=== PATIENT | female | born 1945 | race Caucasian/White ===

== ENCOUNTER 2017-05-20 22:55 | Emergency (ER) | payer MEDICARE, OTHER ==
[2017-05-20] MEDS ORDERED: Aluminum Hydroxide/Magnesium Hydroxide Susp 30 ML Cup PO ONE (23:25)
--- NOTE | 2017-05-20 23:52 | EDM.PDOC ---
ED HPI GENERAL MEDICAL PROBLEM - General Chief Complaint: Chest Pain Stated Complaint: CHEST PRESSURE Time Seen by Provider: 05/20/17 22:58 Source of Information: Reports: Patient History Limitations: Reports: No Limitations - History of Present Illness INITIAL COMMENTS - FREE TEXT/NARRATIVE: 71 y.o.w.f came to the ed due to left sided ant chest pain which improved after she passed some gas. No N/V/D, diaphoresis or dizziness or any other acute medical issue. Onset: Gradual Onset Date: 05/20/17 Onset Time: 13:00 Duration: Hour(s): Location: Reports: Chest Quality: Reports: Dull Severity: Mild Improves with: Reports: Other (taking maalox) Worsens with: Reports: None Associated Symptoms: Reports: No Other Symptoms Midsternal chest Pain Score (Numeric/FACES): 3 - Related Data Allergies Allergy/AdvReac Type Severity Reaction Status Date / Time amoxicillin Allergy Rash Verified 05/20/17 23:22 clindamycin Allergy Hives Verified 05/20/17 23:22 Penicillins Allergy Rash Verified 05/20/17 23:22 Sulfa (Sulfonamide Allergy Rash Verified 05/20/17 23:22 Antibiotics) Home Meds: Home Meds Allopurinol [Zyloprim] 300 mg DAILY 05/20/17 [History] Amitriptyline [Elavil] 20 mg PO BEDTIME 05/20/17 [History] Aspirin [Ecotrin] 325 mg PO DAILY 05/20/17 [History] Atenolol [Tenormin] 100 mg DAILY 05/20/17 [History] Calcium Carb&Cit/D3/Phytostrol [Citracal D + Heart Health] 1 tab BID 05/20/17 [ History] Calcium Polycarbophil [Fibercon] 2 tab PO BEDTIME 05/20/17 [History] Carboxymethylcellulose Sodium [Refresh Tears] 1 drop EYEBOTH DAILY 05/20/17 [ History] Cholecalciferol (Vitamin D3) [Vitamin D3] 2,000 unit PO DAILY 05/20/17 [History] Esomeprazole Magnesium [Nexium] 40 mg PO DAILY 05/20/17 [History] Furosemide [Furosemide] 20 mg DAILY 05/20/17 [History] Letrozole [Femara] 2.5 mg PO DAILY 05/20/17 [History] Losartan [Cozaar] 100 mg DAILY 05/20/17 [History] Multivitamin [Multivitamins] 1 each PO DAILY 05/20/17 [History] Simvastatin [Simvastatin] 20 mg BEDTIME 05/20/17 [History] sitaGLIPtin Phos/Metformin HCl [Janumet 50-1,000 MG] 1 tab BID 05/20/17 [History ] Acetaminophen [Tylenol Arthritis] 650 mg PO BID PRN 05/21/17 [History] Past Medical History Cardiovascular History: Reports: High Cholesterol, Hypertension Gastrointestinal History: Reports: GERD Endocrine/Metabolic History: Reports: Diabetes, Type II Oncologic (Cancer) History: Reports: Breast - Past Surgical History Female Surgical History: Reports: Mastectomy Oncologic Surgical History: Reports: Mastectomy Social & Family History - Tobacco Use Smoking Status *Q: Never Smoker - Recreational Drug Use Recreational Drug Use: No ED ROS GENERAL - Review of Systems Review Of Systems: See Below Constitutional: Reports: No Symptoms HEENT: Reports: No Symptoms Respiratory: Reports: No Symptoms Cardiovascular: Reports: Chest Pain Endocrine: Reports: No Symptoms GI/Abdominal: Reports: No Symptoms : Reports: No Symptoms Musculoskeletal: Reports: No Symptoms Skin: Reports: No Symptoms Neurological: Reports: No Symptoms Psychiatric: Reports: No Symptoms Hematologic/Lymphatic: Reports: No Symptoms Immunologic: Reports: No Symptoms ED EXAM, GENERAL - Physical Exam Exam: See Below Exam Limited By: No Limitations General Appearance: Alert, WD/WN, No Apparent Distress, Obese Eye Exam: Bilateral Eye: Normal Inspection Ears: Normal External Exam Ear Exam: Bilateral Ear: Auricle Normal Nose: Normal Inspection Throat/Mouth: Normal Inspection Head: Atraumatic Neck: Normal Inspection Respiratory/Chest: No Respiratory Distress Cardiovascular: Normal Peripheral Pulses, Regular Rate, Rhythm, No Edema Peripheral Pulses: 2+: Femoral (L), Femoral (R) GI/Abdominal: Normal Bowel Sounds, Soft, Non-Tender (Female) Exam: Deferred Rectal (Female) Exam: Deferred Back Exam: Normal Inspection, Full Range of Motion Extremities: Normal Inspection, Normal Range of Motion Neurological: Alert, Oriented, CN II-XII Intact, Normal Cognition Psychiatric: Normal Affect, Normal Mood Skin Exam: Warm, Dry, Intact, Normal Color Lymphatic: No Adenopathy EKG INTERPRETATION EKG Date: 05/20/17 Time: 23:05 Rhythm: NSR Rate (Beats/Min): 73 [place]: Normal P-Wave: Present QRS: Normal ST-T: Normal QT: Normal Comparison: NA - No Prior EKG Course - Vital Signs Text/Narrative:: 71 y.o.w.f came to the ed due to left sided ant chest pain which improved after she passed some gas. No N/V/D, diaphoresis or dizziness or any other acute medical issue. PE: WNWD w f NAD Labs: Impression: A typical chest pain Tx: Maalox Reexam: Pain subsided BP was 145/67 on D/C Plan: D/C with instructions Last Recorded V/S: Last Vital Signs Temp 36.6 C 05/20/17 22:58 Pulse 78 05/20/17 22:58 Resp 20 05/21/17 00:40 BP 149/63 H 05/21/17 00:40 Pulse Ox 97 05/21/17 00:40 - Orders/Labs/Meds Orders: Active Orders 24 hr Category Date Time Status EKG Documentation Completion [RC] ASDIRECTED Care 05/21/17 01:41 Active EKG 12 Lead [EK] Routine Ther 05/20/17 23:00 Ordered Labs: Laboratory Tests 05/20/17 05/20/17 05/20/17 Range/Units 23:10 23:10 23:10 WBC 8.1 (4.5-12.0) X10-3/uL RBC 4.25 (3.23-5.20) x10(6)uL Hgb 12.4 (11.5-15.5) g/dL Hct 37.2 (30.0-51.3) % MCV 87.5 (80-96) fL MCH 29.3 (27.7-33.6) pg MCHC 33.5 (32.2-35.4) g/dL RDW 14.8 (11.5-15.5) % Plt Count 195 (125-369) X10(3)uL MPV 10.4 (7.4-10.4) fL Neut % (Auto) 54.0 (46-82) % Lymph % (Auto) 33.8 (13-37) % Ponce % (Auto) 7.7 (4-12) % Eos % (Auto) 4 (1.0-5.0) % Baso % (Auto) 1 (0-2) % Neut # (Auto) 4.3 (1.6-8.3) # Lymph # (Auto) 2.8 (0.6-5.0) # Ponce # (Auto) 0.6 (0.0-1.3) # Eos # (Auto) 0.3 (0.0-0.8) # Baso # (Auto) 0.1 (0.0-0.2) # Sodium 138 (135-145) mmol/L Potassium 4.5 (3.5-5.3) mmol/L Chloride 104 D (100-110) mmol/L Carbon Dioxide 23 (23-29) mmol/L BUN 32 H (8-23) mg/dL Creatinine 1.4 H (0.6-1.3) mg/dL Est Cr Clr Drug Dosing 31.37 mL/min Estimated GFR (MDRD) 37 L (>60) BUN/Creatinine Ratio 22.9 H (9-20) Glucose 148 H (80-116) mg/dL Calcium 10.1 (8.6-10.2) mg/dL Troponin I 0.01 L (0.02-0.06) NG/ML Meds: Medications Discontinued Medications Generic Name Dose Route Start Last Admin Trade Name Freq PRN Reason Stop Dose Admin Al Hydroxide/Mg Hydroxide 30 ml 05/20/17 23:25 05/20/17 23:29 Mag-Al Susp PO 05/20/17 23:26 30 ml ONETIME ONE Administration Departure - Departure Time of Disposition: 00:43 Disposition: Home, Self-Care 01 Condition: Good Clinical Impression: GERD (gastroesophageal reflux disease) Qualifiers: Esophagitis presence: without esophagitis Qualified Code(s): K21.9 - Gastro- esophageal reflux disease without esophagitis Instructions: Gastroesophageal Reflux Disease, Adult Referrals: Omi Orta MD [Primary Care Provider] - Forms: ED Department Discharge Additional Instructions: Please take Maalox 3 hours after your last meal of the day, please follow up with your regular MD, come back if your symptoms get worse acutely. - My Orders Last 24 Hours: My Active Orders 05/20/17 23:00 EKG 12 Lead [EK] Routine 05/21/17 01:41 EKG Documentation Completion [RC] ASDIRECTED - Assessment/Plan Last 24 Hours: My Active Orders 05/20/17 23:00 EKG 12 Lead [EK] Routine 05/21/17 01:41 EKG Documentation Completion [RC] ASDIRECTED
[2017-05-21 01:38] VITALS: BP 149/63
== END 2017-05-21 00:53 | disposition home or self-care (01) ==
LOC: FB.ED 22:55
DX: K21.9 Gastro-esophageal reflux disease without esophagitis (principal); E78.00 Pure hypercholesterolemia, unspecified; I10 Essential (primary) hypertension; E11.9 Type 2 diabetes mellitus without complications; Z90.89 Acquired absence of other organs; Z79.82 Long term (current) use of aspirin; Z79.899 Other long term (current) drug therapy; Z88.0 Allergy status to penicillin; Z88.2 Allergy status to sulfonamides; Z88.1 Allergy status to other antibiotic agents; Z79.84 Long term (current) use of oral hypoglycemic drugs
CPT/HCPCS: 36415; 80048; 84484; 85025; 93005; 96372; 99285; A9270; 99283

== ENCOUNTER 2020-04-30 07:11 | Day surgery (SDC) | payer MEDICARE ==
[2020-04-30] MEDS ORDERED: Lidocaine 1% PF 2 ML SDV INJECT ONE (07:12)
[2020-04-30] MEDS ORDERED: Propofol 200 MG/20 ML SDV IV ONE (07:12)
[2020-04-30] MEDS ORDERED: Sodium Chloride 0.9% 10 ML Syringe FLUSH PRN (08:45)
[2020-04-30] MEDS ORDERED: Lactated Ringers 1,000 ML IV SCH (08:45)
--- NOTE | 2020-04-30 08:53 | PCM.OPNOTE ---
- General Post-Op/Procedure Note Date of Surgery/Procedure: 04/30/20 Operative Procedure(s): c scope with biopsy Findings: descending colon polyp x6 Pre Op Diagnosis: screening for colon cancer Post-Op Diagnosis: descending colon polyp x6 Anesthesia Technique: ANTONIA Primary Surgeon: Seun Romero Anesthesia Provider: Aristeo Saravia Pathology: descending colon polyp x6 Complications: None Condition: Good Free Text/Narrative:: see dictation
[2020-04-30 09:48] VITALS: BP 151/75; PULSE 60
--- NOTE | 2020-04-30 20:22 | OR ---
DATE OF OPERATION: 04/30/2020 SURGEON: Seun Romero MD PREOPERATIVE DIAGNOSIS: Need for colon cancer screening. POSTOPERATIVE DIAGNOSIS: Descending colon polyps x6. INDICATIONS FOR PROCEDURE: This is a 74-year-old white female who is referred for routine colon cancer screening. She was offered and accepted same. DESCRIPTION OF OPERATION: After an excellent IV sedation was administered, digital rectal exam was performed. No marked abnormality was noted. Flexible colonoscope was inserted and advanced to the cecum. The prep was excellent. Following findings were noted: Ascending colon, unremarkable. Transverse colon, unremarkable. Descending colon in the area from the splenic flexure down a total of 6 polypoid lesions were removed varying in size between 2 to approximately 4 mm. These were all submitted in 1 container. Sigmoid was unremarkable. Rectum and anus were unremarkable. Results will be sent to the patient via letter. /[id number] [address]ILLA
== END 2020-04-30 10:13 | disposition home or self-care (01) ==
LOC: FB.SDS 07:11
PROVIDERS: ATTEND Surgery
DX: Z12.11 Encounter for screening for malignant neoplasm of colon (principal); D12.4 Benign neoplasm of descending colon; E11.9 Type 2 diabetes mellitus without complications; E66.01 Morbid (severe) obesity due to excess calories; G47.33 Obstructive sleep apnea (adult) (pediatric); I10 Essential (primary) hypertension; E78.5 Hyperlipidemia, unspecified; Z68.39 Body mass index [BMI] 39.0-39.9, adult; Z79.899 Other long term (current) drug therapy; Z88.0 Allergy status to penicillin; Z88.1 Allergy status to other antibiotic agents; Z88.2 Allergy status to sulfonamides
CPT/HCPCS: 00812-QZ; 82962; 88305; J2001; J2704; J7120

== ENCOUNTER 2024-09-04 00:11 | Emergency (ER) | payer MEDICARE ==
[2024-09-04] MEDS ORDERED: traMADol 50 MG Tab PO ONE (00:12)
[2024-09-04] MEDS: Morphine 4 MG/ML VIAL IM ONE (00:32)
[2024-09-04 00:34] LABS: BASOPHILS ABSOLUTE AUTO 0.1 x10-3/uL (0.0-0.1); BASOPHILS PERCENT AUTO 1.1 % (0.2-1.5); EOSINOPHILS ABSOLUTE AUTO 0.3 x10-3/uL (0.0-0.8); EOSINOPHILS PERCENT AUTO 3.4 % (0.6-8.1); HEMATOCRIT 36.6 % (34.2-48.2); HEMOGLOBIN 12.1 g/dL (11.4-15.5); LYMPHOCYTES ABSOLUTE AUTO 4.2 x10-3/uL (1.0-4.4); LYMPHOCYTES PERCENT AUTO 44.6 % (18.4-52.1); MEAN CORPUSCULAR HEMOGLOBIN 30.3 pg (23.9-33.9); MEAN CORPUSCULAR HGB CONC 33.1 g/dL (31.9-34.8); MEAN CORPUSCULAR VOLUME 91.7 fL (76.7-100.5); MEAN PLATELET VOLUME 9.8 fL (7.1-12.4); MONOCYTES ABSOLUTE AUTO 0.6 x10-3/uL (0.3-1.0); MONOCYTES PERCENT AUTO 6.6 % (4.4-15.7); NEUTROPHILS ABSOLUTE AUTO 4.2 x10-3/uL (1.5-6.3); NEUTROPHILS PERCENT AUTO 44.3 % (30.8-76.2); PLATELET COUNT,PLT 253 x10(3)uL (151-488); RED BLOOD CELL COUNT 3.99 x10(6)uL (3.60-5.20); RED CELL DISTRIBUTION WIDTH 15.3 % (12.3-16.5); WHITE BLOOD CELL COUNT,WBC 9.5 x10-3/uL (3.0-10.3)
[2024-09-04] MEDS: hydrOXYzine HCl 50 MG/ML SDV IM ONE (00:34)
[2024-09-04 00:36] LABS: BLOOD UREA NITROGEN,BUN 33 mg/dL (7-18); BUN/CREATININE RATIO 19.4 (9-20); CALCIUM 9.2 mg/dL (8.6-10.2); CARBON DIOXIDE,CO2 25 mmol/L (21-32); CHLORIDE,CL 107 mmol/L (100-110); CREATININE 1.7 mg/dL (0.55-1.02); EST CRCL DRUG DOSING (CG) 23.93 mL/min; ESTIMATED GFR 31 mL/min (>60); GLUCOSE RANDOM 127 mg/dL (80-116); SODIUM,NA 143 mmol/L (135-145)
[2024-09-04 02:39] VITALS: BP 153/68; PULSE 65
[2024-09-04] MEDS: cloNIDine 0.1 MG Tab PO ONE (02:45)
== END 2024-09-04 02:20 | disposition home or self-care (01) ==
LOC: FB.ED 00:11
DX: M54.2 Cervicalgia (principal); E78.00 Pure hypercholesterolemia, unspecified; E11.22 Type 2 diabetes mellitus with diabetic chronic kidney disease; I12.9 Hypertensive chronic kidney disease with stage 1 through stage 4 chronic kidney disease, or unspecified chronic kidney disease; N18.9 Chronic kidney disease, unspecified; K21.9 Gastro-esophageal reflux disease without esophagitis; E66.9 Obesity, unspecified; Z79.82 Long term (current) use of aspirin; Z79.899 Other long term (current) drug therapy; Z88.1 Allergy status to other antibiotic agents; Z88.0 Allergy status to penicillin; Z88.2 Allergy status to sulfonamides
CPT/HCPCS: 36415; 71045; 80048; 84484; 85025; 93005; 93010; 96372; 99284; A9270-GY; J2270; J3410

== ENCOUNTER 2025-05-08 08:15 | Day surgery (SDC) | payer MEDICARE ==
[2025-05-08] MEDS ORDERED: Propofol 200 MG/20 ML SDV IV ONE (08:16)
[2025-05-08] MEDS ORDERED: Glycopyrrolate 0.2 MG/ML 5 ML MDV IV ONE (08:16)
[2025-05-08] MEDS ORDERED: Lidocaine 2% 5 ML SDV ONE (08:16)
[2025-05-08] MEDS ORDERED: Ketamine 500 mg/10 ML MDV IV ONE (08:16)
[2025-05-08] MEDS ORDERED: Midazolam 1 MG/ML 2 ML SDV IV ONE (08:16)
[2025-05-08] MEDS ORDERED: Lidocaine 2% 100 MG/5 ML Syringe IVPUSH ONE (08:16)
[2025-05-08] MEDS ORDERED: Sodium Chloride 0.9% 10 ML Syringe FLUSH PRN (08:30)
[2025-05-08] MEDS: Lactated Ringers 1,000 ML IV SCH (09:55)
[2025-05-08] MEDS: Simethicone Drops 40 MG/0.6 ML 30 ML Bottle ONE (10:10)
[2025-05-08 12:00] VITALS: BP 127/67; PULSE 50
== END 2025-05-08 12:08 | disposition home or self-care (01) ==
LOC: FB.SDS 08:15
PROVIDERS: ATTEND Surgery
DX: D64.9 Anemia, unspecified (principal); D12.6 Benign neoplasm of colon, unspecified; K21.00 Gastro-esophageal reflux disease with esophagitis, without bleeding; K29.50 Unspecified chronic gastritis without bleeding; I10 Essential (primary) hypertension; E78.5 Hyperlipidemia, unspecified; E66.01 Morbid (severe) obesity due to excess calories; Z68.41 Body mass index [BMI] 40.0-44.9, adult
CPT/HCPCS: 00813; 88305; 99100; A9270-GY; J1596; J2003; J2250; J2704; J3490; J7120